=== PATIENT | female | born 1980 | race Caucasian/White ===

== ENCOUNTER 2019-11-12 09:30 | Inpatient (IN) | payer OTHER ==
[~2019-11-12] VITALS: Ht 165.1 cm; Wt 73.5 kg
[2019-11-22] MEDS ORDERED: CHILDREN'S ASPI81 MG PO (05:59)
[2019-11-22] MEDS ORDERED: PRENATAL TABLE1 EAC1 PO (05:59)
== END 2019-11-24 19:42 | disposition home or self-care (01) | DRG 807 ==
LOC: SURG-SUITE 11-22 05:22 → LDR 11-22 05:22 → SURG-SUITE 11-22 14:27 → EDBD 11-26 09:30 → RECOVERY 11-26 09:30
PROVIDERS: ADMIT Specialist; ATTEND Specialist
PROC: 10E0XZZ Delivery of Products of Conception, External Approach (ICD-10-PCS; principal; 2019-11-22)
PROC: 3E033VJ Introduction of Other Hormone into Peripheral Vein, Percutaneous Approach (ICD-10-PCS; 2019-11-22)
PROC: 4A1HXFZ Monitoring of Products of Conception, Cardiac Rhythm, External Approach (ICD-10-PCS; 2019-11-22)
PROC: 0W8NXZZ Division of Female Perineum, External Approach (ICD-10-PCS; 2019-11-22)
DX: O69.81X0 Labor and delivery complicated by cord around neck, without compression, not applicable or unspecified (principal); Z37.0 Single live birth; Z3A.39 39 weeks gestation of pregnancy; R03.0 Elevated blood-pressure reading, without diagnosis of hypertension

== ENCOUNTER 2024-01-19 09:24 | Outpatient (CLI) | payer OTHER ==
[~2024-01-19 09:24] MED LIST: CHILDREN'S ASPI81 MG PO; PRENATAL TABLE1 EAC1 PO
== END 2024-01-19 09:27 | disposition home or self-care (01) ==
LOC: SONOGRAMA 09:24
PROVIDERS: ATTEND Pathology Anatomic Pathology & Clinical Pathology
DX: D44.0 Neoplasm of uncertain behavior of thyroid gland (principal); E04.2 Nontoxic multinodular goiter